=== PATIENT | female | born 1990 | race Caucasian/White ===

== ENCOUNTER 2016-04-03 09:04 | Inpatient (IN) | payer BC ==
[~2016-04-03] VITALS: Ht 154.9 cm; Wt 73.0 kg
[2016-04-03 09:10] VITALS: Ht 154.9 cm; Wt 73.0 kg
[2016-04-03] MEDS ORDERED: OXYTOCIN 15 UNITS/250 ML NS 250 ML IV SCH ×3 (09:20→17:05)
[2016-04-03] MEDS ORDERED: LIDOCAINE 1% BUFFERED 1 ML SYR INTRADERM PRN (09:20)
[2016-04-03] MEDS ORDERED: TERBUTALINE 1 MG/ML VIAL SUBQ PRN (09:20)
[2016-04-03] MEDS ORDERED: ONDANSETRON 4 MG VIAL IV PRN (09:20)
[2016-04-03] MEDS ORDERED: LIDOCAINE 1% 30 ML PF INFILTRATE ONE (09:20)
[2016-04-03] MEDS ORDERED: FAMOTIDINE 20 MG TAB PO PRN (09:20)
[2016-04-03] MEDS ORDERED: FAMOTIDINE 20 MG INJ IV PRN (09:20)
[2016-04-03] MEDS ORDERED: ACETAMINOPHEN 325 MG TAB PO PRN (09:20)
[2016-04-03] MEDS ORDERED: METOCLOPRAMIDE 10 MG/2 ML VIAL IV PUSH PRN (09:20)
[2016-04-03] MEDS ORDERED: PROMETHAZINE 25 MG/ML VIAL IV PRN (09:20)
[2016-04-03] MEDS ORDERED: ALU/MAG/SIM 30 ML UDC PO PRN (09:20)
[2016-04-03] MEDS ORDERED: CEFAZOLIN (LD/OB) 100 ML IV PRN (09:20)
[2016-04-03] MEDS ORDERED: FENTANYL 100 MCG/2 ML AMP IV ONE (10:09)
[2016-04-03] MEDS ORDERED: MORPHINE PF 0.5 MG/ML 10 ML IV ONE (10:09)
[2016-04-03] MEDS ORDERED: OXYTOCIN 10 UNITS/ML VIAL IV ONE (10:09)
[2016-04-03] MEDS ORDERED: MIDAZOLAM 2 MG/2 ML INJ IV ONE (10:09)
[2016-04-03] MEDS ORDERED: PHENYLEPHRINE 10 MG/ML VIAL IV ONE (10:09)
[2016-04-03] MEDS ORDERED: CHLOROPROCAINE 3% VIAL EPIDURAL ONE (10:09)
[2016-04-03] MEDS: LACT RINGERS 1,000 ML IV SCH ×2 (11:39→20:41)
[2016-04-03] MEDS: MORPHINE 5 MG/1 ML VIAL IV PRN ×2 (16:41→19:43)
[2016-04-03] MEDS ORDERED: ROPIV/FENT 0.2%-2MCG/ML 100 ML EPIDURAL ONE (21:05)
[2016-04-03] MEDS ORDERED: FENTANYL 100 MCG/2 ML AMP ONE (21:06)
[2016-04-03] MEDS ORDERED: ROPIV/FENT 0.2%-2MCG/ML 100 ML EPIDURAL SCH (21:30)
[2016-04-03] MEDS ORDERED: LACT RINGERS 500 ML IV PRN (21:30)
[2016-04-03] MEDS ORDERED: FENTANYL 100 MCG/2 ML AMP EPIDURAL ONE (21:30)
[2016-04-03] MEDS ORDERED: SODIUM CHLORIDE 0.9% 500 ML IV PRN (21:30)
[2016-04-03] MEDS ORDERED: LACT RINGERS 500 ML IV ONE (21:30)
[2016-04-04] VITALS (15 sets, daily range): BP systolic 108–144; RESP 15–24; TEMP 97.9–99.2
[2016-04-04] MEDS: LACT RINGERS 1,000 ML IV SCH (00:06)
[2016-04-04] MEDS ORDERED: NALOXONE 0.4 MG/ML AMP IV PRN ×2 (05:50→07:00)
[2016-04-04] MEDS ORDERED: MORPHINE 2 MG/ML SYR IV PRN ×4 (05:50→07:20)
[2016-04-04] MEDS ORDERED: PROMETHAZINE 25 MG/ML VIAL IV PRN ×2 (05:50→07:00)
[2016-04-04] MEDS ORDERED: MORPHINE 4 MG/ML SYR IV PRN ×3 (05:50→07:00)
[2016-04-04] MEDS ORDERED: BUTORPHANOL 1 MG/ML VIAL IV PRN ×2 (05:50→07:00)
[2016-04-04] MEDS ORDERED: DIPHENHYDRAMINE 50 MG/ML VIAL IV PRN ×2 (05:50→07:00)
[2016-04-04] MEDS ORDERED: ONDANSETRON 4 MG VIAL IV PRN ×5 (05:50→07:20)
[2016-04-04] MEDS ORDERED: KETOROLAC 30 MG/ML VIAL IV SCH (06:00)
[2016-04-04] MEDS: SODIUM CHLORIDE 0.9% FLUSH BAG 500 ML IV SCH (06:00)
[2016-04-04] MEDS ORDERED: MISOPROSTOL 100 MCG TAB ONE (06:06)
[2016-04-04] MEDS ORDERED: LACT RINGERS 1,000 ML IV SCH (06:55)
[2016-04-04] MEDS ORDERED: OXYTOCIN 15 UNITS/250 ML NS 250 ML IV SCH (06:55)
[2016-04-04] MEDS ORDERED: TDaP 0.5 ML VIAL IM.VACC ONE (06:55)
[2016-04-04] MEDS ORDERED: MAG HYDROX 30 ML UDC PO PRN (06:55)
[2016-04-04] MEDS ORDERED: OXYCODONE/APAP 5/325 TAB PO PRN (06:55)
[2016-04-04] MEDS ORDERED: MEASLES,MUMPS,RUBELLA VAC SUBQ.VACC ONE (06:55)
[2016-04-04] MEDS ORDERED: MISOPROSTOL 200 MCG TAB PO ONE (06:55)
[2016-04-04] MEDS ORDERED: OXYCODONE 5 MG TAB PO PRN (07:00)
[2016-04-04] MEDS ORDERED: MEPERIDINE 25 MG/ML IV PRN ×2 (07:00→07:20)
[2016-04-04] MEDS ORDERED: SALINE FLUSH 10 ML FLUSH PRN (07:00)
[2016-04-04] MEDS ORDERED: DILAUDID 1 MG/ML AMP IV PRN ×2 (07:00→07:20)
[2016-04-04] MEDS: MORPHINE 4 MG/ML SYR IV PRN ×2 (07:29→08:53)
[2016-04-04] MEDS ORDERED: **ONLY ANESTEHSIA MAY ORDER OPIATES WHILE ON EPIDURAL XX SCH (08:00)
[2016-04-04] MEDS: SALINE FLUSH 10 ML FLUSH SCH ×4 (08:00→20:00)
[2016-04-04] MEDS: LEVOTHYROXINE 0.088 MG TAB PO SCH (08:09)
[2016-04-04] MEDS: DOCUSATE SOD 100 MG CAP PO SCH (11:28)
[2016-04-04] MEDS: KETOROLAC 30 MG/ML VIAL IV SCH ×3 (11:28→23:57)
[2016-04-04] MEDS: SALINE FLUSH 10 ML FLUSH PRN (23:57)
[2016-04-05 01:31] VITALS: BP_SYST 116; RESP 16; TEMP 97.2
[2016-04-05 05:13] VITALS: BP_SYST 125; RESP 16; TEMP 97.6
[2016-04-05] MEDS ORDERED: SODIUM CHLORIDE 0.9% FLUSH BAG 500 ML IV SCH (06:00)
[2016-04-05] MEDS: SODIUM CHLORIDE 0.9% FLUSH BAG 500 ML IV SCH (06:00)
[2016-04-05] MEDS: KETOROLAC 30 MG/ML VIAL IV SCH (06:08)
[2016-04-05] MEDS: LEVOTHYROXINE 0.088 MG TAB PO SCH (06:08)
[2016-04-05] MEDS: SALINE FLUSH 10 ML FLUSH PRN (06:09)
[2016-04-05] MEDS: SALINE FLUSH 10 ML FLUSH SCH ×2 (07:08→12:38)
[2016-04-05] MEDS: DOCUSATE SOD 100 MG CAP PO SCH (08:25)
[2016-04-05 09:31] VITALS: BP_SYST 126; RESP 18; TEMP 98
[2016-04-05] MEDS: Ibuprofen 800 MG TAB PO SCH ×3 (09:53→23:40)
[2016-04-05 13:35] VITALS: BP_SYST 120; TEMP 97.6
[2016-04-05 13:36] VITALS: RESP 16
[2016-04-05] MEDS: OXYCODONE/APAP 5/325 TAB PO PRN ×2 (14:04→21:41)
[2016-04-05 17:48] VITALS: BP_SYST 143; RESP 24; TEMP 98.5
[2016-04-06] MEDS: OXYCODONE/APAP 5/325 TAB PO PRN ×3 (06:17→16:38)
[2016-04-06] MEDS ORDERED: MISSING DOSE XX ONE ×2 (06:55→07:00)
[2016-04-06] MEDS: LEVOTHYROXINE 0.088 MG TAB PO SCH (08:00)
[2016-04-06 09:00] VITALS: BP_SYST 126; RESP 20; TEMP 98.3
[2016-04-06] MEDS: Ibuprofen 800 MG TAB PO SCH (09:20)
[2016-04-06] MEDS: DOCUSATE SOD 100 MG CAP PO SCH (09:21)
[2016-04-06 16:34] VITALS: BP_SYST 126; RESP 20; TEMP 98.3
[2016-04-06 16:40] VITALS: BP_SYST 126; RESP 20; TEMP 98.3
== END 2016-04-06 16:50 | disposition home or self-care (01) | DRG 766 ==
LOC: LD 09:04 → OB 04-04 09:20
PROVIDERS: ADMIT Obstetrics & Gynecology; ATTEND Obstetrics & Gynecology
PROC: 10D00Z1 Extraction of Products of Conception, Low, Open Approach (ICD-10-PCS; principal; 2016-04-04)
PROC: 3E033VJ Introduction of Other Hormone into Peripheral Vein, Percutaneous Approach (ICD-10-PCS; 2016-04-04)
PROC: 10907ZC Drainage of Amniotic Fluid, Therapeutic from Products of Conception, Via Natural or Artificial Opening (ICD-10-PCS; 2016-04-04)
DX: O62.1 Secondary uterine inertia (principal); O24.429 Gestational diabetes mellitus in childbirth, unspecified control; Z3A.40 40 weeks gestation of pregnancy; Z37.0 Single live birth
CPT/HCPCS: 82803; 82947; 85025; 86850; 86870; 86900; 86901; 86970